=== PATIENT | female | born 1955 | race Caucasian/White ===

== ENCOUNTER 2022-12-10 13:30 | Inpatient (IN) | payer OTHER ==
[~2022-12-10] VITALS: Ht 157.5 cm; Wt 44.5 kg
[2022-12-10] MEDS ORDERED: NA P133E RC (14:26)
[2022-12-10] MEDS ORDERED: CLON0.2T PO (14:26)
[2022-12-10] MEDS ORDERED: MAGN400O6 PO (14:26)
[2022-12-10] MEDS ORDERED: INSU100V27 SQ (14:26)
[2022-12-10] MEDS ORDERED: LEVO50TA8 PO (14:26)
[2022-12-10] MEDS ORDERED: DOCU-141 PO (14:26)
[2022-12-10] MEDS ORDERED: ONDA4TAB5 PO (14:26)
[2022-12-10] MEDS ORDERED: AMIN30LI2 PO (14:26)
[2022-12-10] MEDS ORDERED: SEVE800T28 PO (14:26)
[2022-12-10] MEDS ORDERED: ACET-2605 PO (14:26)
[2022-12-10] MEDS ORDERED: ACET-868 PO (14:26)
[2022-12-10] MEDS ORDERED: SODI1TAB66 PO (14:26)
[2022-12-10] MEDS ORDERED: BISA10SU11 RC (14:26)
[2022-12-10] MEDS ORDERED: FAMO20TA8 PO (14:26)
[2022-12-10] MEDS ORDERED: APIX5TAB PO (14:26)
[2022-12-10] MEDS ORDERED: CLON0.1T PO (14:26)
[2022-12-10] MEDS ORDERED: AMLO-212 PO (14:26)
[2022-12-10] MEDS ORDERED: FOLI0.8T2 PO (14:26)
[2022-12-10 14:28] LABS: BASOPHILS # (AUTO) 0.1 K/uL (0.0-0.2); BASOPHILS % (AUTO) 1.1 % (0.0-2.0); EOSINOPHILS # (AUTO) 0.1 K/uL (0.0-0.7); EOSINOPHILS % (AUTO) 0.9 % (0.0-6.0); HEMATOCRIT 35 % (33-45); HEMOGLOBIN 11.6 g/dL (11.5-14.8); LYMPHOCYTES # (AUTO) 0.7 K/uL (0.8-4.8); LYMPHOCYTES % (AUTO) 7.2 % (20.0-44.0); MEAN CORPUSCULAR HEMOGLOBIN 32 PG (26.0-33.0); MEAN CORPUSCULAR HGB CONC 33 g/dl (31.0-36.0); MEAN CORPUSCULAR VOLUME 98 fL (82-100); MONOCYTES # (AUTO) 0.4 K/uL (0.1-1.30); NEUTROPHILS # (AUTO) 8.1 K/uL (1.8-8.9); NEUTROPHILS % (AUTO) 86.8 % (43.0-81.0); PLATELET COUNT (AUTO) 287 K/uL (150-450); RED BLOOD CELL COUNT(AUTO) 3.59 MIL/uL (4.0-5.2); RED CELL DISTRIBUTION WIDTH 15.6 % (11.5-15.0); WHITE BLOOD COUNT (AUTO) 9.3 K/uL (4.3-11.0)
[2022-12-10 14:44] LABS: CALCIUM, SERUM 9.9 mg/dL (8.5-10.1); CARBON DIOXIDE 21 mmol/L (21-32); CHLORIDE 99 mmol/L (98-107); CREATININE 3.6 mg/dL (0.6-1.3); GLUCOSE 139 mg/dL (74-106); SODIUM SERUM 135 mmol/L (136-145); UREA NITROGEN, BLOOD 39 mg/dL (7-18)
[2022-12-10 14:57] LABS: ALANINE AMINOTRANSFERASE 16 U/L (12-78); ALBUMIN 3.2 g/dL (3.4-5.0); ALKALINE PHOSPHATASE 147 U/L (46-116); ASPARTATE AMINOTRANSFERASE 14 U/L (15-37); BILIRUBIN,DIRECT 0.2 mg/dL (0.0-0.2); BILIRUBIN,TOTAL 0.6 mg/dL (0.2-1.0); NT-PRO BNP 19973 pg/mL (0-125); TOTAL PROTEIN, SERUM 7.7 g/dL (6.4-8.2)
[2022-12-10] MEDS ORDERED: ALBUTEROL FS 2.5 MG/0.5 ML VIAL.NEB NEB PRN (16:00)
[2022-12-10] MEDS ORDERED: DEXTROSE 50%-WATER 50 ML DISP.SYRIN IV PRN (16:00)
[2022-12-10] MEDS ORDERED: BISACODYL SUPP (10 MG) 10 MG/SUPP.RECT SUPP.RECT RC PRN (16:00)
[2022-12-10] MEDS ORDERED: Z GUARD REMEDY 4 OZ OINT TP PRN (16:00)
[2022-12-10] MEDS ORDERED: IPRATROPIUM NEB FS 0.5 MG/2.5 ML AMPUL.NEB NEB PRN (16:00)
[2022-12-10] MEDS ORDERED: INSULIN REGULAR, HUMAN 100 UNIT/ML 3 ML VIAL SQ PRN (16:00)
[2022-12-10] MEDS ORDERED: HYDROCODONE/APAP 5/325MG TABLET PO PRN (16:00)
[2022-12-10] MEDS ORDERED: ACETAMINOPHEN 325 MG TABLET PO PRN ×2 (16:00)
[2022-12-10] MEDS ORDERED: NA PHOS,M-B/NA PHOS,DI-BA 1 EA ENEMA RC PRN (16:00)
[2022-12-10] MEDS ORDERED: ONDANSETRON HCL/PF 4 MG/2 ML VIAL IVP PRN (16:00)
[2022-12-10] MEDS: DOCUSATE SODIUM 100 MG CAPSULE PO SCH (17:00)
[2022-12-10] MEDS: AMLODIPINE BESYLATE 5 MG TABLET PO SCH (17:00)
[2022-12-10] MEDS: BLOOD SUGAR DIAGNOSTIC 1 EACH STRIP IN SCH ×2 (17:30→22:00)
[2022-12-10] MEDS: CLONIDINE HCL 0.1 MG TABLET PO SCH (19:01)
[2022-12-10] MEDS ORDERED: hydrALAZINE HCL IV 20 MG VIAL IV ONE (22:00)
[2022-12-10] MEDS: APIXABAN 5 MG TABLET PO SCH (23:05)
[2022-12-11] VITALS: BP 173/79; TEMP 98.1; O2SAT 98
[2022-12-11 04:00] VITALS: BP 184/77; TEMP 98.1; O2SAT 98
[2022-12-11] MEDS: hydrALAZINE HCL IV 20 MG VIAL IV PRN ×2 (05:48→13:06)
[2022-12-11 07:27] LABS: BASOPHILS # (AUTO) 0.1 K/uL (0.0-0.2); BASOPHILS % (AUTO) 1.2 % (0.0-2.0); EOSINOPHILS # (AUTO) 0.1 K/uL (0.0-0.7); EOSINOPHILS % (AUTO) 1.7 % (0.0-6.0); HEMATOCRIT 31 % (33-45); HEMOGLOBIN 10.5 g/dL (11.5-14.8); LYMPHOCYTES # (AUTO) 1.6 K/uL (0.8-4.8); LYMPHOCYTES % (AUTO) 19.7 % (20.0-44.0); MEAN CORPUSCULAR HEMOGLOBIN 32 PG (26.0-33.0); MEAN CORPUSCULAR HGB CONC 33 g/dl (31.0-36.0); MEAN CORPUSCULAR VOLUME 97 fL (82-100); MONOCYTES # (AUTO) 0.7 K/uL (0.1-1.30); MONOCYTES % (AUTO) 8.6 % (2.0-12.0); NEUTROPHILS # (AUTO) 5.7 K/uL (1.8-8.9); NEUTROPHILS % (AUTO) 68.8 % (43.0-81.0); PLATELET COUNT (AUTO) 256 K/uL (150-450); RED BLOOD CELL COUNT(AUTO) 3.23 MIL/uL (4.0-5.2); RED CELL DISTRIBUTION WIDTH 15.4 % (11.5-15.0); WHITE BLOOD COUNT (AUTO) 8.3 K/uL (4.3-11.0)
[2022-12-11] MEDS ORDERED: LEVOTHYROXINE SODIUM 50 MCG TABLET PO SCH (07:30)
[2022-12-11] MEDS ORDERED: FAMOTIDINE (20 MG) 20 MG TABLET PO SCH (07:30)
[2022-12-11] MEDS: BLOOD SUGAR DIAGNOSTIC 1 EACH STRIP IN SCH ×2 (07:58→12:35)
[2022-12-11 08:00] VITALS: BP 161/77; TEMP 98.9; O2SAT 98
[2022-12-11] MEDS: AMLODIPINE BESYLATE 5 MG TABLET PO SCH ×2 (08:10→16:35)
[2022-12-11] MEDS: DOCUSATE SODIUM 100 MG CAPSULE PO SCH ×2 (08:10→16:34)
[2022-12-11] MEDS: SEVELAMER CARBONATE 800 MG TABLET PO SCH ×2 (08:10→08:14)
[2022-12-11] MEDS: CLONIDINE HCL 0.1 MG TABLET PO SCH ×2 (08:10→16:35)
[2022-12-11] MEDS: APIXABAN 5 MG TABLET PO SCH (08:12)
[2022-12-11 08:23] LABS: CALCIUM, SERUM 9.3 mg/dL (8.5-10.1); CREATININE 2.8 mg/dL (0.6-1.3); MAGNESIUM 2.6 mg/dL (1.8-2.4); PHOSPHORUS 3.4 mg/dL (2.5-4.9); POTASSIUM 4.6 mmol/L (3.5-5.1)
[2022-12-11] MEDS ORDERED: VIT B CMPLX 3/FA/VIT C/BIOTIN 1 TAB TABLET PO SCH (09:00)
[2022-12-11 12:00] VITALS: BP 165/80; TEMP 98; O2SAT 98
[2022-12-11] MEDS ORDERED: hydrALAZINE HCL IV 20 MG VIAL IV ONE (16:00)
[2022-12-11 16:09] VITALS: O2SAT 98
[2022-12-11 16:36] VITALS: BP 180/80; TEMP 98; O2SAT 98
[2022-12-11] MEDS ORDERED: SEVELAMER CARBONATE 800 MG TABLET PO SCH (18:00)
[2022-12-12 11:07] LABS: HEPATITIS B SURFACE AB Non Reactive (.)
[2022-12-12] MEDS ORDERED: SEVELAMER CARBONATE 800 MG TABLET PO SCH (13:00)
== END 2022-12-11 18:38 | DRG 425 ==
LOC: ER 13:38 → TELE1 21:20
PROC: 5A1D70Z Performance of Urinary Filtration, Intermittent, Less than 6 Hours Per Day (ICD-10-PCS; principal; 2022-12-10)
DX: E87.70 Fluid overload, unspecified (principal); J96.21 Acute and chronic respiratory failure with hypoxia; I12.0 Hypertensive chronic kidney disease with stage 5 chronic kidney disease or end stage renal disease; N18.6 End stage renal disease; I27.20 Pulmonary hypertension, unspecified; E83.41 Hypermagnesemia; E11.22 Type 2 diabetes mellitus with diabetic chronic kidney disease; Z79.4 Long term (current) use of insulin; Z79.01 Long term (current) use of anticoagulants; Z79.899 Other long term (current) drug therapy; E78.5 Hyperlipidemia, unspecified; E03.9 Hypothyroidism, unspecified; D64.9 Anemia, unspecified; I34.0 Nonrheumatic mitral (valve) insufficiency; J98.11 Atelectasis; M89.8X9 Other specified disorders of bone, unspecified site; Z99.2 Dependence on renal dialysis
CPT/HCPCS: 36415; 71045-TC; 80048-TC; 80076-TC; 82962-TC; 83735-TC; 83880; 84100-TC; 84484-TC; 85025-TC; 86706; 87081-TC; 87340; 90935-TC; 93307-TC; 97110-TC; 97112-TC; 97530-TC; G0378; J0360; J1815; J7030

== ENCOUNTER 2025-02-24 12:24 | Inpatient (IN) | payer MEDICAID, OTHER ==
[~2025-02-24] VITALS: Ht 154.9 cm; Wt 44.5 kg
[~2025-02-24 12:24] MED LIST: ACET-868 PO; AMIN30LI2 PO; AMLO-212 PO; APIX5TAB PO; BISA10SU11 RC; CLON0.1T PO; CLON0.2T PO; DOCU-141 PO; FAMO20TA8 PO; FOLI0.8T2 PO; INSU100V27 SQ; LEVO50TA8 PO; MAGN400O6 PO; NA P133E RC; ONDA4TAB5 PO; SEVE800T28 PO; SODI1TAB66 PO
[2025-02-24] MEDS: FAMOTIDINE/PF INJ 20 MG/2 ML VIAL IV ONE (13:00)
[2025-02-24] MEDS: ONDANSETRON HCL/PF 4 MG/2 ML VIAL IVP ONE (13:00)
[2025-02-24] MEDS: PANTOPRAZOLE 80 MG in IV NS 0.9% 500 ML IV ONE (13:00)
[2025-02-24] MEDS ORDERED: ONDANSETRON HCL/PF 4 MG/2 ML VIAL ONE (13:43)
[2025-02-24] MEDS ORDERED: FAMOTIDINE/PF INJ 20 MG/2 ML VIAL IV ONE (13:44)
[2025-02-24] MEDS: PANTOPRAZOLE 80 MG in IV NS 0.9% 100 ML IV ONE (13:55)
[2025-02-24 13:57] LABS: CALCIUM, SERUM 9.0 mg/dL (8.5-10.1); CREATININE 3.1 mg/dL (0.6-1.3); PLATELET COUNT (AUTO) 373 K/uL (150-450); RED BLOOD CELL COUNT(AUTO) 2.93 MIL/uL (4.0-5.2); RED CELL DISTRIBUTION WIDTH 16.3 % (11.5-15.0); SODIUM SERUM 135 mmol/L (136-145); UREA NITROGEN, BLOOD 8 mg/dL (7-18); WHITE BLOOD COUNT (AUTO) 11.4 K/uL (4.3-11.0)
[2025-02-24 14:02] LABS: ASPARTATE AMINOTRANSFERASE 21 U/L (15-37); TOTAL PROTEIN, SERUM 7.8 g/dL (6.4-8.2)
[2025-02-24 14:04] LABS: INR 1.17 (0.91-1.10)
[2025-02-24] MEDS: hydrALAZINE HCL IV 20 MG VIAL IV ONE (20:48)
[2025-02-24] MEDS ORDERED: SEVELAMER CARBONATE 800 MG TABLET PO SCH (21:00)
[2025-02-24] MEDS ORDERED: ACETAMINOPHEN 325 MG TABLET PO PRN ×2 (21:00)
[2025-02-24] MEDS ORDERED: MAGNESIUM HYDROXIDE 30 ML UDC PO PRN (21:00)
[2025-02-24] MEDS ORDERED: MAG HYDROX/AL HYDROX/SIMETH 30 ML UDC PO PRN (21:00)
[2025-02-24] MEDS ORDERED: DEXTROSE 50%-WATER 50 ML DISP.SYRIN IV PRN (21:00)
[2025-02-24] MEDS ORDERED: Z GUARD REMEDY 4 OZ OINT TP PRN (21:00)
[2025-02-24 21:15] VITALS: BP 173/70; TEMP 98.6; O2SAT 100
[2025-02-24] MEDS: BLOOD SUGAR DIAGNOSTIC 1 EACH STRIP IN SCH (21:59)
[2025-02-24] MEDS: INSULIN REGULAR, HUMAN 100 UNIT/ML 3 ML VIAL SQ PRN (22:02)
[2025-02-24 23:36] VITALS: BP 159/76; TEMP 98.6; O2SAT 100
[2025-02-25] VITALS: BP 175/83; TEMP 98.4; O2SAT 99
[2025-02-25 02:51] LABS: PLATELET COUNT (AUTO) 349 K/uL (150-450); RED BLOOD CELL COUNT(AUTO) 2.97 MIL/uL (4.0-5.2); RED CELL DISTRIBUTION WIDTH 16.5 % (11.5-15.0); WHITE BLOOD COUNT (AUTO) 11.9 K/uL (4.3-11.0)
[2025-02-25 03:03] LABS: CALCIUM, SERUM 8.8 mg/dL (8.5-10.1); CREATININE 4.0 mg/dL (0.6-1.3); PHOSPHORUS 2.4 mg/dL (2.5-4.9); SODIUM SERUM 138 mmol/L (136-145); UREA NITROGEN, BLOOD 11 mg/dL (7-18)
[2025-02-25 04:00] VITALS: BP 152/62; TEMP 98.1; O2SAT 98
[2025-02-25] MEDS: LEVOTHYROXINE SODIUM 50 MCG TABLET PO SCH (07:30)
[2025-02-25] MEDS ORDERED: FAMOTIDINE (20 MG) 20 MG TABLET PO SCH (07:30)
[2025-02-25 08:00] VITALS: BP 117/61; TEMP 98.8; O2SAT 100
[2025-02-25] MEDS: AMLODIPINE BESYLATE 5 MG TABLET PO SCH (09:00)
[2025-02-25] MEDS: DOCUSATE SODIUM 100 MG CAPSULE PO SCH (09:00)
[2025-02-25] MEDS ORDERED: APIXABAN 5 MG TABLET PO SCH (09:00)
[2025-02-25] MEDS: VITAMIN B COMP W-C 1 TAB TABLET PO SCH (09:00)
[2025-02-25] MEDS: PANTOPRAZOLE 40 MG VIAL IV SCH (09:00)
[2025-02-25] MEDS: PROSOURCE / PROSTAT (PYXIS) 30 ML UDC PO SCH (11:00)
[2025-02-25] MEDS: SEVELAMER CARBONATE 800 MG TABLET PO SCH (11:00)
[2025-02-25 11:30] VITALS: BP 125/72; TEMP 98.2; O2SAT 100
[2025-02-25] MEDS: ONDANSETRON HCL/PF 4 MG/2 ML VIAL IVP PRN (15:31)
[2025-02-25 16:00] VITALS: BP 199/89; TEMP 98.2; O2SAT 100
[2025-02-25] MEDS: CLONIDINE HCL 0.1 MG TABLET PO PRN (17:12)
[2025-02-25] MEDS ORDERED: hydrALAZINE HCL IV 20 MG VIAL IV PRN (18:30)
[2025-02-25 20:00] VITALS: BP 94/54; TEMP 97.9; O2SAT 97
[2025-02-26] VITALS: BP 103/60; TEMP 97.5; O2SAT 100
[2025-02-26 04:59] VITALS: BP 98/62; TEMP 97.7; O2SAT 99
[2025-02-26 07:35] LABS: PLATELET COUNT (AUTO) 270 K/uL (150-450); RED BLOOD CELL COUNT(AUTO) 2.64 MIL/uL (4.0-5.2); RED CELL DISTRIBUTION WIDTH 16.3 % (11.5-15.0); WHITE BLOOD COUNT (AUTO) 9.7 K/uL (4.3-11.0)
[2025-02-26 08:00] VITALS: BP 121/71; TEMP 98.4; O2SAT 100
[2025-02-26] MEDS: SEVELAMER CARBONATE 800 MG TABLET PO SCH (08:03)
[2025-02-26] MEDS: PROSOURCE / PROSTAT (PYXIS) 30 ML UDC PO SCH (08:03)
[2025-02-26 08:04] LABS: CALCIUM, SERUM 8.2 mg/dL (8.5-10.1); CREATININE 5.4 mg/dL (0.6-1.3); PHOSPHORUS 3.1 mg/dL (2.5-4.9); SODIUM SERUM 139.0 mmol/L (136-145); UREA NITROGEN, BLOOD 22.0 mg/dL (7-18)
[2025-02-26] MEDS ORDERED: ANESTHESIA TRAY IN PYXIS 1 EA TRAY MC ONE (11:08)
[2025-02-26] MEDS: SOD FERRIC GLUC 125 MG in IV NS 0.9% 100 ML IV SCH (14:16)
[2025-02-26 16:00] VITALS: BP 114/52; TEMP 98.5; O2SAT 99
[2025-02-26 20:06] VITALS: BP 114/55; TEMP 98.6; O2SAT 100
[2025-02-27 00:14] VITALS: BP 111/57; TEMP 97.7; O2SAT 100
[2025-02-27 04:00] VITALS: BP 117/56; TEMP 98.4; O2SAT 100
[2025-02-27 08:32] LABS: CALCIUM, SERUM 8.2 mg/dL (8.5-10.1); CREATININE 6.7 mg/dL (0.6-1.3); PHOSPHORUS 3.3 mg/dL (2.5-4.9); SODIUM SERUM 135.0 mmol/L (136-145); UREA NITROGEN, BLOOD 41.0 mg/dL (7-18)
[2025-02-27 08:44] VITALS: BP 146/62; TEMP 98.4; O2SAT 100
[2025-02-27 11:04] LABS: PLATELET COUNT (AUTO) 297 K/uL (150-450); RED BLOOD CELL COUNT(AUTO) 2.68 MIL/uL (4.0-5.2); RED CELL DISTRIBUTION WIDTH 17.7 % (11.5-15.0); WHITE BLOOD COUNT (AUTO) 9.8 K/uL (4.3-11.0)
[2025-02-27] MEDS ORDERED: IV NS 0.9% 250 ML IV ONE (11:45)
[2025-02-27] MEDS ORDERED: IOHEXOL-300 100 ML VIAL IV ONE (11:45)
[2025-02-27] MEDS ORDERED: CT SWABBABLE VALVE TRANS SET 1 EA INFUS.SET MC ONE (11:45)
[2025-02-27 12:15] LABS: IRON, SERUM 45.0 ug/dl (50-175)
[2025-02-27] MEDS: EPOETIN ALFA (10,000 UNIT) 10,000 UNIT/ML VIAL IV ONE (12:28)
[2025-02-27 16:06] VITALS: BP 137/54; TEMP 98.2; O2SAT 100
[2025-02-27] MEDS: APIXABAN 2.5 MG TABLET PO SCH (16:07)
[2025-02-27] MEDS: LIDOCAINE 1% INJ 50 ML MDV IJ ONE (19:32)
[2025-02-27 20:00] VITALS: BP 152/56; TEMP 98.4; O2SAT 99
[2025-02-28 08:00] VITALS: BP 153/64; TEMP 98.2; O2SAT 100
[2025-02-28] MEDS: MEGESTROL ACETATE 40 MG TABLET PO SCH (17:02)
[2025-02-28 20:00] VITALS: BP_SYST 164; BP_SYST 173; BP_DIAS 64; BP_DIAS 66; TEMP 98.4; O2SAT 100
[2025-02-28] MEDS: PANTOPRAZOLE 40 MG TABLET.DR PO SCH (20:30)
[2025-03-01 08:00] VITALS: BP 151/67; TEMP 97.5; O2SAT 99
[2025-03-01] MEDS: ISOSORBIDE DINITRATE (20MG) 20 MG TABLET PO SCH (09:39)
[2025-03-01] MEDS: EPOETIN ALFA (10,000 UNIT) 10,000 UNIT/ML VIAL IV ONE (09:41)
[2025-03-01 16:00] VITALS: BP 132/56; TEMP 97.3; O2SAT 100
[2025-03-01 16:14] LABS: IRON, SERUM 43 ug/dl (50-175)
[2025-03-01 17:05] LABS: PLATELET COUNT (AUTO) 265 K/uL (150-450); RED BLOOD CELL COUNT(AUTO) 2.48 MIL/uL (4.0-5.2); RED CELL DISTRIBUTION WIDTH 16.3 % (11.5-15.0); WHITE BLOOD COUNT (AUTO) 6.1 K/uL (4.3-11.0)
[2025-03-01 17:18] LABS: CALCIUM, SERUM 8.1 mg/dL (8.5-10.1); CREATININE 4.4 mg/dL (0.6-1.3); IRON, SERUM 40.0 ug/dl (50-175); PHOSPHORUS 1.7 mg/dL (2.5-4.9); SODIUM SERUM 134.0 mmol/L (136-145); UREA NITROGEN, BLOOD 21.0 mg/dL (7-18)
[2025-03-01 20:00] VITALS: BP 99/44; TEMP 98.1; O2SAT 100
[2025-03-02 06:11] LABS: HEPATITIS B CORE AB, IgM Negative (Negative)
[2025-03-02 06:54] LABS: PLATELET COUNT (AUTO) 261 K/uL (150-450); RED BLOOD CELL COUNT(AUTO) 2.78 MIL/uL (4.0-5.2); RED CELL DISTRIBUTION WIDTH 16.8 % (11.5-15.0); WHITE BLOOD COUNT (AUTO) 9.2 K/uL (4.3-11.0)
[2025-03-02 08:00] VITALS: BP 108/43; TEMP 98.2; O2SAT 100
[2025-03-02 08:11] LABS: CANCER AG, 15-3 9.7 U/mL (0.0-25.0); CARCINOEMBRYONIC ANTIGEN (CEA) 1.6 ng/mL (0.0-4.7); IMMUNOGLOBULIN A, SERUM 298 mg/dL (64-422); IMMUNOGLOBULIN M, SERUM 53 mg/dL (26-217)
[2025-03-02 12:07] LABS: FOLIC ACID 4.3 ng/mL (>3.0)
[2025-03-02 15:07] LABS: FREE KAPPA LT CHAINS SERUM 132.0 mg/L (3.3-19.4); FREE LAMBDA LT CHAIN SERUM 192.1 mg/L (5.7-26.3); KAPPA/LAMBDA RATIO SERUM 0.69 (0.26-1.65)
[2025-03-02 16:00] VITALS: BP 137/46; TEMP 98.6; O2SAT 100
[2025-03-02 20:44] VITALS: BP 142/62; TEMP 98.1; O2SAT 100
[2025-03-03 08:19] LABS: IRON, SERUM 29 ug/dl (50-175)
[2025-03-03 08:58] VITALS: BP 158/61; TEMP 98.1; O2SAT 100
[2025-03-03] MEDS ORDERED: MEGE40TA7 PO (11:54)
[2025-03-03] MEDS ORDERED: APIX2.5T PO (11:54)
[2025-03-03] MEDS ORDERED: HYDR-4077 PO (11:54)
[2025-03-03 14:24] LABS: PLATELET COUNT (AUTO) 277 K/uL (150-450); RED BLOOD CELL COUNT(AUTO) 2.63 MIL/uL (4.0-5.2); RED CELL DISTRIBUTION WIDTH 16.3 % (11.5-15.0); WHITE BLOOD COUNT (AUTO) 7.4 K/uL (4.3-11.0)
[2025-03-03 16:16] VITALS: BP 160/80; TEMP 98.6; O2SAT 98
[2025-03-03] MEDS: EPOETIN ALFA (10,000 UNIT) 10,000 UNIT/ML VIAL IV ONE (18:23)
[2025-03-03 18:25] VITALS: BP 160/80
== END 2025-03-03 18:30 | DRG 242 ==
LOC: ER 12:33 → TELE 20:40 → MED 02-27 11:11
PROC: 0DB68ZX Excision of Stomach, Via Natural or Artificial Opening Endoscopic, Diagnostic (ICD-10-PCS; principal; 2025-02-26 12:00)
PROC: 5A1D70Z Performance of Urinary Filtration, Intermittent, Less than 6 Hours Per Day (ICD-10-PCS; 2025-02-27)
DX: K22.11 Ulcer of esophagus with bleeding (principal); G93.41 Metabolic encephalopathy; I13.2 Hypertensive heart and chronic kidney disease with heart failure and with stage 5 chronic kidney disease, or end stage renal disease; I21.A1 Myocardial infarction type 2; N18.6 End stage renal disease; D63.8 Anemia in other chronic diseases classified elsewhere; I25.10 Atherosclerotic heart disease of native coronary artery without angina pectoris; I48.91 Unspecified atrial fibrillation; Z99.2 Dependence on renal dialysis; E11.22 Type 2 diabetes mellitus with diabetic chronic kidney disease; K29.70 Gastritis, unspecified, without bleeding; Z79.890 Hormone replacement therapy; Z79.01 Long term (current) use of anticoagulants; Z79.4 Long term (current) use of insulin; Z79.899 Other long term (current) drug therapy; D53.9 Nutritional anemia, unspecified; D25.9 Leiomyoma of uterus, unspecified; D72.829 Elevated white blood cell count, unspecified; E03.9 Hypothyroidism, unspecified; E78.5 Hyperlipidemia, unspecified; R91.1 Solitary pulmonary nodule; E27.9 Disorder of adrenal gland, unspecified; M89.9 Disorder of bone, unspecified; Z98.61 Coronary angioplasty status
CPT/HCPCS: 36415; 71045-TC; 71260-TC; 76641-TC; 80048-TC; 80076-TC; 82378; 82607-TC; 82728-TC; 82784; 82962-TC; 83540-TC; 83690-TC; 83735-TC; 84100-TC; 84155; 84165; 84443-TC; 84484-TC; 85025-TC; 85027-TC; 85730-TC; 86300; 86334; 86705; 86850-TC; 87081-TC; 87340; 88305-TC; 88313-TC; 88342; 90935-TC; 93307-TC; 97110-TC; 97112-TC; 97116-TC; 97530-TC; A4223; A6253; G0378; J0360; J0885; J1308; J1815; J2405; J2470; J2704; J2916; J3490; J7030; J7040; J7050; Q9967